=== PATIENT | female | born 1930 | race Two or more races ===

== ENCOUNTER 2018-10-10 22:12 | Emergency (ER) | payer MEDICARE, MEDICAID ==
[~2018-10-10] VITALS: Ht 157.5 cm; Wt 65.0 kg
[2018-10-10] MEDS ORDERED: METO-282 PO (22:27)
[2018-10-10] MEDS ORDERED: LEVO0.5P PO (22:28)
[2018-10-10] MEDS ORDERED: ALLO1POW PO (22:29)
--- NOTE | 2018-10-10 22:29 | NUR ---
GLF, LEFT WRIST PAIN W/DEFORMITY X 1/2 HOUR AGO,
[2018-10-10] MEDS ORDERED: OXYcodone/APAP 5/325MG TABLET PO ONE (22:30)
[2018-10-10] MEDS ORDERED: LIDOCAINE 1%, 10ML INFIL ONE (22:30)
[2018-10-10] MEDS ORDERED: BUPIVACAINE/PF 0.5% INFIL ONE (22:30)
[2018-10-10] MEDS ORDERED: ONDANSETRON ODT 4 MG PO ONE (22:30)
[2018-10-10] MEDS ORDERED: ONDANSETRON ODT 4 MG ONE (22:31)
[2018-10-10] MEDS ORDERED: OXYcodone/APAP 5/325MG TABLET ONE (22:32)
[2018-10-10] MEDS ORDERED: BUPIVACAINE 0.25% ONE (22:32)
[2018-10-10] MEDS ORDERED: LIDOCAINE-MPF 1%, 5ML ONE (22:38)
--- NOTE | 2018-10-10 22:53 | NUR ---
AND [facility] AT FOR SPLINT PLACEMENT
[2018-10-10 23:42] VITALS: BP 144/80
--- NOTE | 2018-10-10 23:42 | NUR ---
SLING TO RIGHT ARM
--- NOTE | 2018-10-10 23:42 | NUR ---
Patient/Caregiver given discharge instructions and they have confirmed that they understand the instructions. Patient ambulatory with steady gait.
== END 2018-10-10 23:44 | disposition home or self-care (01) ==
LOC: ED 22:38
DX: S52.571A Other intraarticular fracture of lower end of right radius, initial encounter for closed fracture (principal); S52.611A Displaced fracture of right ulna styloid process, initial encounter for closed fracture; E03.9 Hypothyroidism, unspecified; I10 Essential (primary) hypertension; W01.0XXA Fall on same level from slipping, tripping and stumbling without subsequent striking against object, initial encounter; Y93.89 Activity, other specified; Y92.009 Unspecified place in unspecified non-institutional (private) residence as the place of occurrence of the external cause; Y99.8 Other external cause status
CPT/HCPCS: 25605; 73090; 73100; 73110; 99284; Q0162

== ENCOUNTER 2018-10-29 22:46 | Emergency (ER) | payer MEDICARE, MEDICAID ==
[~2018-10-29] VITALS: Ht 157.5 cm; Wt 65.0 kg
[~2018-10-29 22:46] MED LIST: ALLO1POW PO; LEVO0.5P PO; METO-282 PO
--- NOTE | 2018-10-30 00:36 | NUR ---
BP IN ROOM 157/47. PT SAYS HER NORMAL BPs ARE SYSTOLIC 140s. LAB AT BEDSIDE.
[2018-10-30 00:42] LABS: BASOPHILS # (AUTO) 0.02 x10^3/uL (0-0.1); BASOPHILS % (AUTO) 0 % (0-1); EOSINOPHILS # (AUTO) 0.05 x10^3/uL (0-0.4); EOSINOPHILS % (AUTO) 1 % (1-7); LYMPHOCYTES # (AUTO) 1.16 x10^3/uL (1-3.4); LYMPHOCYTES % (AUTO) 16 % (22-44); MD NO; MEAN CORPUSCULAR HEMOGLOBIN 29.1 pg (27.0-34.8); MEAN CORPUSCULAR HGB CONC 33.2 g/dL (32.4-35.8); MEAN CORPUSCULAR VOLUME 87.6 fL (80-100); MEAN PLATELET VOLUME 7.3 fL (7.4-10.4); MONOCYTES # (AUTO) 0.32 x10^3/uL (0.2-0.8); MONOCYTES % (AUTO) 5 % (2-9); NEUTROPHILS # (AUTO) 5.71 x10^3/uL (1.8-6.8); NEUTROPHILS % (AUTO) 79 % (42-75); PLATELET COUNT 302 x10^3/uL (130-400); RED BLOOD COUNT 4.32 x10^6/uL (3.82-5.3); RED CELL DISTRIBUTION WIDTH 14.7 % (9.6-15.2)
[2018-10-30 00:52] LABS: ALANINE AMINOTRANSFERASE 12 U/L (12-78); ALBUMIN 3.7 g/dL (3.4-5.0); ANION GAP 10 mmol/L (5-15); CALCIUM 8.9 mg/dL (8.5-10.1); CHLORIDE 97 mmol/L (98-107)
[2018-10-30 01:02] LABS: ALKALINE PHOSPHATASE 83 U/L (45-117); BILIRUBIN,TOTAL 0.9 mg/dL (0.2-1.0); CREATININE 1.42 mg/dL (0.55-1.02); THYROID STIMULATING HORMONE 0.009 mIU/L (0.358-3.740)
--- NOTE | 2018-10-30 01:16 | NUR ---
PT AMBULATORY TO BATHROOM WITH FAMILY ASSISTANCE. WAITING FOR RESULTS.
--- NOTE | 2018-10-30 01:28 | NUR ---
ADDITIONAL LABS ORDERED, PT AND FAMILY UPDATED ON POC. MONIOTRS IN PLACE, VSS. PT COMFROTABLE ON AI.
[2018-10-30] MEDS ORDERED: POTASSIUM CHLORIDE 20 MEQ TAB.ER.PRT PO ONE (02:30)
[2018-10-30] MEDS ORDERED: POTASSIUM CHLORIDE 20 MEQ TAB.ER.PRT ONE (02:38)
--- NOTE | 2018-10-30 02:42 | NUR ---
RE-EVALUATION DONE. PATIENT DISCHARGED INSTRUCTION GIVEN TO DAUGHTER. VERBALIZED UNDERSTANDING.
[2018-10-30 02:45] VITALS: BP 138/81
== END 2018-10-30 02:48 | disposition home or self-care (01) ==
LOC: ED 23:00
DX: E87.6 Hypokalemia (principal); E87.1 Hypo-osmolality and hyponatremia; I10 Essential (primary) hypertension; E03.9 Hypothyroidism, unspecified
CPT/HCPCS: 36415; 80053; 84439; 84443; 85025; 93005; 99284